=== PATIENT | female | born 1945 | race Caucasian/White ===

== ENCOUNTER 2020-04-25 17:05 | Emergency (ER) | payer OTHER, SELFPAY ==
[2020-04-25 17:21] VITALS: BP 140/80; PULSE 50; RESP 20; TEMP 36.3; O2SAT 100
--- NOTE | 2020-04-25 17:39 | ED.SKABFB ---
HPI - Skin/Abscess/Foreign Bdy General Chief complaint: Skin/Abscess/Foreign Body Stated complaint: Poison jaci Time Seen by Provider: 04/25/20 17:31 Source: patient and RN notes reviewed Mode of arrival: ambulatory Limitations: no limitations History of Present Illness HPI narrative: Patient presents today complaining of a poison jaci rash to her wrist x10 days, that have spread to her face over the last 2 days. She came into contact with poison jaci while working outside. She believes she is developing being a spot on her left inner thigh as well. She has been using topical spray to the areas without much relief, and reports some severe itching. MD complaint: rash Related Data Allergies Allergy/AdvReac Type Severity Reaction Status Date / Time No Known Allergies Allergy Verified 04/25/20 17:31 Review of Systems Review of Systems: Narrative: CONSTITUTIONAL: Denies body aches, fever, chills, or sweats. EYES: Denies visual changes, redness, or discharge. ENT: Denies rhinorrhea, congestion, sore throat, or otalgia. CARDIOVASCULAR: Denies chest pain, palpitations, or edema. RESPIRATORY: Denies cough or dyspnea. GASTROINTESTINAL: Denies abdominal pain, nausea, vomiting, or diarrhea. GENITOURINARY: Denies dysuria or hematuria. SKIN: Denies itching, or wounds. + Rash MUSCULOSKELETAL: Denies back pain, joint pain, or myalgia. NEUROLOGIC: Denies headache, numbness, tingling, or weakness. PSYCH: Denies depression or anxiety. PMFSH Comments At time of signature, I have reviewed and agree with nursing past medical, surgical, social and family history unless otherwise noted. Please see nursing chart for further information. There is no relevant family history pertinent to the presenting complaint Exam Narrative: Exam Narrative: GENERAL: Well-appearing, well-nourished, and in no acute distress. HEAD: Normocephalic, atraumatic. EYES: EOMI. PERRL. No redness or drainage. Conjunctivae normal. Mild swelling of the left upper and lower eye lids. Erythematous macular papular rash to bilateral cheeks, lower eyelids, and left worship. No active drainage or crusting. No induration. ENT: Mucous membranes pink and moist. NECK: Normal AROM. Supple. No lymphadenopathy. CHEST: No respiratory distress. EXTREMITIES: Normal range of motion. No edema. SKIN: Warm, dry. Capillary refill normal. Normal skin turgor. Healing erythematous papular rash to the anterior bilateral wrists. NEURO: No focal deficits. Alert and oriented x3. Gait steady. PSYCH: Normal affect. No signs of depression or anxiety. Course Vital Signs Vital signs: Vital Signs Temperature 97.3 F L 04/25/20 17:21 Pulse Rate 50 L 04/25/20 17:21 Respiratory Rate 04/25/20 17:21 Blood Pressure 140/80 04/25/20 17:21 Pulse Oximetry 100 04/25/20 17:21 Temperature 97.3 F L 04/25/20 17:21 Pulse Rate 50 L 04/25/20 17:21 Respiratory Rate 20 04/25/20 17:21 Blood Pressure 140/80 04/25/20 17:21 Pulse Oximetry 100 04/25/20 17:21 Reviewed. Pt has been instructed to follow up with her PCP regarding her elevated blood pressure today. MDM - Skin/Abscess/Foreign Bdy Differential Diagnosis Differential diagnosis: Likely abscess of skin or subcutaneous tissue, urticaria, cellulitis, eczema, insect bites, impetigo and contact dermatitis Critical Care Time Critical Care Time Critical Care Time: No Discharge Plan Discharge Clinical Impression: Poison jaci dermatitis Patient Disposition: Home, Self-Care Condition: Stable Instructions: Poison Jaci (ED) Prescriptions: New prednisone 10 mg tablet See Rx Instructions .ROUTE .COMPLEX Qty: 42 RF: 0 Follow-up/Referrals: Trish,Emigdio Wilburn MD [Primary Care Provider] - Time of Disposition: 17:47
== END 2020-04-25 17:50 | disposition home or self-care (01) ==
PROVIDERS: Emergency Provider Nurse Practitioner; PCP Family Medicine
DX: L23.7 Allergic contact dermatitis due to plants, except food (principal); I34.1 Nonrheumatic mitral (valve) prolapse
CPT/HCPCS: 99213; G0463

== ENCOUNTER 2020-05-10 16:40 | Emergency (ER) | payer OTHER, SELFPAY ==
[2020-05-10 17:00] VITALS: BP 170/91; PULSE 61; RESP 16; TEMP 37.4; O2SAT 98
--- NOTE | 2020-05-10 17:04 | ED.SKABFB ---
HPI - Skin/Abscess/Foreign Bdy General Chief complaint: Skin/Abscess/Foreign Body Stated complaint: Rash Time Seen by Provider: 05/10/20 17:10 Source: patient and RN notes reviewed Mode of arrival: ambulatory Limitations: no limitations History of Present Illness HPI narrative: This is a 74 years old female presents to the office for an evaluation of itchy rash. She was seen here a few weeks ago for poison harley, prednisone has helped reduce the itchy rash however it has not resolved it. She still have a few itchy rash on upper and lower extremities. Denies re-exposure to poison harley. She has tried [id number] anti-itchy spray with minimal help. Related Data Allergies Allergy/AdvReac Type Severity Reaction Status Date / Time No Known Allergies Allergy Verified 04/25/20 17:31 Review of Systems Review of Systems: Narrative: CONSTITUTIONAL: Denies fever ENT: Denies lip swelling, tongue swelling, throat pain CARDIOVASCULAR: Denies chest pain, palpitation RESPIRATORY: Denies dyspnea, wheezing GASTROINTESTINAL: Denies abdominal pain, nausea, vomiting SKIN: Reports itchy rash in upper and lower extremities and belly region MUSCULOSKELETAL: Denies joints pain NEUROLOGIC: Denies lightheaded All other systems reviewed are negative, except as documented in HPI. [facility] Past Medical History Medical History (Updated 05/10/20 @ 17:24 by HESHAM Carbone) History of bradycardia Surgical History Surgical History (Updated 05/10/20 @ 17:24 by HESHAM Carbone) Hx of hysterectomy Comments At time of signature, I agree with nursing past medical, surgical, social and family history. There is no relevant family history pertinent to the presenting complaint. Exam Narrative: Exam Narrative: GENERAL: This is a well-nourished, well-developed patient, in no apparent distress. THROAT: Mucous membranes moist, posterior pharynx clear. CARDIOVASCULAR: Regular rate and rhythm without murmurs, gallops, or rubs. RESPIRATORY: Clear to auscultation. Breath sounds equal bilaterally. No wheezes, rales, or rhonchi. GASTROINTESTINAL: Abdomen soft, non-tender, nondistended. Bowel sounds are active. No hepato-splenomegaly, or palpable masses. No guarding. SKIN: left forearm noted a group of vesicular linear streak erythema lesions, similar rash noted on right arm, torso. Patient claims to have similar rash on her thight; however she did not want to change into gown for me to look at. NEURO: awake, alert, and oriented to person, place and time. There were no obvious focal neurologic abnormalities. Steady gait EXTREMITIES: Normal range of motion. No edema. [place] Coma Scale Eye Opening: Spontaneous 4 [place] Coma Scale Motor: Obeys Commands 6 [place] Coma Scale Verbal: Oriented 5 Course Vital Signs Vital signs: Vital Signs Temperature 99.3 F 05/10/20 17:00 Pulse Rate 61 05/10/20 17:00 Respiratory Rate 16 05/10/20 17:00 Blood Pressure 170/91 H 05/10/20 17:00 Pulse Oximetry 98 05/10/20 17:00 Temperature 99.3 F 05/10/20 17:00 Pulse Rate 61 05/10/20 17:00 Respiratory Rate 16 05/10/20 17:00 Blood Pressure 170/91 H 05/10/20 17:00 Pulse Oximetry 98 05/10/20 17:00 MDM - Skin/Abscess/Foreign Bdy MDM Narrative Medical decision making narrative: Discussed the risk and side effects of prednisone back to back, patient still wanted because she believes it's the only thing that helped her. Discharge instructions reviewed with patient, as well as provided in writing per nursing staff. The instructions also include specific and strict return/GO TO THE ER as well as f/u information. All questions have been answered, and the patient deny any further questions with discharge and discharge plan. Elevated BP noted: patient is informed that they may have pre-hypertension or hypertension based on a blood pressure reading in the department. I recommend the patient call the primary care provider listed on their d
== END 2020-05-10 17:20 | disposition home or self-care (01) ==
PROVIDERS: Emergency Provider Nurse Practitioner; PCP Family Medicine
DX: L24.7 Irritant contact dermatitis due to plants, except food (principal)
CPT/HCPCS: 99213; G0463

== ENCOUNTER 2021-05-04 14:42 | Emergency (ER) | payer OTHER, SELFPAY ==
[2021-05-04 14:59] VITALS: BP 131/59; PULSE 52; RESP 16; TEMP 36.9; O2SAT 98
--- NOTE | 2021-05-04 15:24 | ED.SKABFB ---
HPI - Skin/Abscess/Foreign Bdy General Chief complaint: Skin/Abscess/Foreign Body Stated complaint: Possible Poison Jaci on Face and Arms Time Seen by Provider: 05/04/21 15:21 Source: patient and RN notes reviewed Mode of arrival: ambulatory Limitations: no limitations History of Present Illness HPI narrative: 75-year-old female presents with concern for 2-week history of rash. 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 Reports the rash has been spreading despite her trying several [id number] products such as IV dry, calamine lotion. She denies difficulty breathing, swollen lips, swollen tongue. complaint: rash Related Data Home Medications Medication Instructions Recorded Confirmed No Home Medications 05/04/21 05/04/21 Allergies Allergy/AdvReac Type Severity Reaction Status Date / Time No Known Allergies Allergy Verified 05/04/21 15:13 Review of Systems Review of Systems: CONSTITUTIONAL: Denies malaise, chills, sweats, or fever. EYES: Denies visual changes, redness, or discharge. ENT: Denies swollen lips, swollen tongue RESPIRATORY: Denies cough or dyspnea. SKIN: Reports itchy rash on both forearms, face All systems reviewed & are unremarkable except as noted in HPI and below PMFSH Past Medical History Medical History (Updated 05/04/21 @ 15:29 by Renetta Don NP) History of bradycardia Surgical History Surgical History (Updated 05/10/20 @ 17:24 by HESHAM Carbone) Hx of hysterectomy Comments At time of signature, agree with nursing past medical, surgical, social and family history. There is no relevant family history pertinent to the presenting complaint Exam Narrative: GENERAL: Well-appearing, well-nourished, and in no acute distress. HEAD: Normocephalic, atraumatic. EYES: PERRLA, conjunctivae clear, and EOMI. ENT: Mucous membranes moist. Oropharynx without edema, erythema or lesions. NECK: Supple. No lymphadenopathy CHEST: Clear to auscultation. No respiratory distress. HEART: Regular rate and rhythm. SKIN: Warm, dry. Patches of erythema and papules noted to bilateral arms, cheeks NEURO: Alert and oriented x3. PSYCH: Normal mood and affect Course Course Emergency Course: Patient is aware of diagnosis, understands and agrees to treatment plan. Anticipatory guidance given. Patient agrees to follow-up as directed and is aware of reasons to seek care at the emergency department. Portions of this record may have been created with voice recognition software Vital Signs Vital signs: Vital Signs Temperature 98.5 F 05/04/21 14:59 Pulse Rate 52 L 05/04/21 14:59 Respiratory Rate 16 05/04/21 14:59 Blood Pressure 131/59 L 05/04/21 14:59 Pulse Oximetry 98 05/04/21 14:59 Temperature 98.5 F 05/04/21 14:59 Pulse Rate 52 L 05/04/21 14:59 Respiratory Rate 16 05/04/21 14:59 Blood Pressure 131/59 L 05/04/21 14:59 Pulse Oximetry 98 05/04/21 14:59 Reviewed. MDM - Skin/Abscess/Foreign Bdy MDM Narrative Medical decision making narrative: Does not appear at this time to be erythema multiforme, bullous, SJS, TEN; no evidence at this time to suggest RMSF, endocarditis or Lyme disease; patient looks well, nontoxic and is tolerating oral intake; no neurologic signs or symptoms; no headache, photophobia or neck pain; afebrile; appropriate for initial outpatient treatment; discussed the importance of follow-up, patient agrees; question, viral exanthema, contact dermatitis, allergic dermatitis, eczema, urticaria, shingles. No soft palate or uvula edema, no tongue, lip edema or other mucosal involvement, no respiratory compromise, no stridor, no wheezing, no wheezing, no history of syncope, no hypotension, no nausea, vomiting, or diarrhea. Instructed patient to go to nearest ER immediately for any worsening symptoms including but not limited to: fever, spreading rash, pain, sore throat, headache, dizziness, chest pain, trouble breathing, or any symptoms
== END 2021-05-04 15:30 | disposition home or self-care (01) ==
PROVIDERS: Emergency Provider Nurse Practitioner
DX: L24.7 Irritant contact dermatitis due to plants, except food (principal)
CPT/HCPCS: 99213; G0463

== ENCOUNTER 2023-01-31 09:05 | Emergency (ER) | payer OTHER, SELFPAY ==
[2023-01-31 09:10] VITALS: BP 170/72; PULSE 60; RESP 16; TEMP 36.8; O2SAT 98
--- NOTE | 2023-01-31 09:10 | ED.SKABFB ---
HPI - Skin/Abscess/Foreign Bdy General Chief complaint: Skin/Abscess/Foreign Body Stated complaint: poison harley left eye Time Seen by Provider: 01/31/23 09:22 Source: patient and RN notes reviewed Mode of arrival: ambulatory Limitations: no limitations History of Present Illness HPI narrative: 77-year-old female presents with concern for poison harley to her left eyelid. She reports that symptoms started yesterday, her eyelid is itchy, ramírez sinus swollen. She reports she is getting a rash under her nose as well. She reports she was exposed to poison harley. She denies vision changes, pressure behind the eye, eye pain. She denies fever, aches, chills, sweats. She denies drainage from the eye. She denies swollen lips, swollen tongue, trouble breathing MD complaint: rash Related Data Home Medications Medication Instructions Recorded Confirmed No Home Medications 05/04/21 05/04/21 Allergies Allergy/AdvReac Type Severity Reaction Status Date / Time No Known Allergies Allergy Verified 01/31/23 09:13 Review of Systems Review of Systems: GENERAL: Well-appearing, well-nourished, and in no acute distress. HEAD: Normocephalic, atraumatic. EYES: PERRLA, conjunctivae and sclera clear bilaterally, and EOMI. No nystagmus. Upper and lower eyelid erythema, edema, warmth, upper eyelid is indurated and tender. No proptosis, no complaints of pain with eye movement her ENT: Nares clear, turbinates pink, no rhinorrhea or epistaxis. Mucous membranes moist. NECK: Supple. CHEST: No respiratory distress. Speaks in full sentences. HEART: Regular rate and rhythm. SKIN: Warm, dry, no visible rash. NEURO: Alert and oriented x3. PSYCH: Normal mood and affect All systems reviewed & are unremarkable except as noted in HPI and below PMFSH Past Medical History Medical History (Updated 01/31/23 @ 09:51 by Renetta Don NP) History of bradycardia Surgical History Surgical History (Updated 05/10/20 @ 17:24 by HESHAM Carbone) Hx of hysterectomy Comments At time of signature, agree with nursing past medical, surgical, social and family history. There is no relevant family history pertinent to the presenting complaint Exam Narrative: GENERAL: Well-appearing, well-nourished, and in no acute distress. HEAD: Normocephalic, atraumatic. EYES: PERRLA, conjunctivae clear, and EOMI. ENT: Mucous membranes moist. Oropharynx without edema, erythema or lesions. NECK: Supple. No lymphadenopathy CHEST: Clear to auscultation. No respiratory distress. HEART: Regular rate and rhythm. SKIN: Warm, dry. Patches of erythema and edema NEURO: Alert and oriented x3. PSYCH: Normal mood and affect Course Course Emergency Course: Decadron IM given 6mg Patient is aware of, understands and agrees to be transferred to the emergency room. Patient agrees to proceed directly to the emergency department. Portions of this record may have been created with voice recognition software Level of Care: Express Care Visit Vital Signs Vital signs: Reviewed. Transfer Transfered to: [facility] Transportation: Other (Private vehicle) Transfer rationale: Rule out orbital cellulitis Accepting physician: Rapoff Transfer comments: Stable for transfer via private vehicle MDM - Skin/Abscess/Foreign Bdy MDM Narrative Medical decision making narrative: Exam findings warrant further evaluation at the emergency department; patient is non-toxic appearing and is in no distress. Differential diagnoses include contact dermatitis, preseptal cellulitis, orbital cellulitis Critical Care Time Critical Care Time Critical Care Time: No Discharge Plan Discharge Clinical Impression: Pain and swelling of lower eyelid of left eye Patient Disposition: Acute Care Hospital Condition: Stable Prescriptions: No Action No Home Medications Follow-up/Referrals: Trish,Emigdio Wilburn MD [Primary Care Provider] -
== END 2023-01-31 10:03 | disposition short-term general hospital (02) ==
PROVIDERS: Emergency Provider Nurse Practitioner; PCP Family Medicine
DX: H02.89 Other specified disorders of eyelid (principal); H02.845 Edema of left lower eyelid
CPT/HCPCS: 96372; 99212; G0463; J1100